=== PATIENT | male | born 1990 | race Caucasian/White ===

== ENCOUNTER 2022-03-04 20:58 | Emergency (ER) | payer OTHER, SELFPAY ==
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
--- NOTE | ~2022-03-04 | CT_ITS ---
EXAMINATION: CT cervical spine wo con DATE: 03/05/2022 03:12 INDICATION: Neck pain TECHNIQUE: Computed tomography (CT) of the cervical spine was performed without intravenous contrast. The dose-length product (DLP) was 516.56 mGy-cm. Automated exposure control and iterative reconstruc tion technique were employed. COMPARISON: None FINDINGS: There is no fracture, dislocation, or subluxation. The vertebral body heights, alignment, a nd intervertebral disc spaces are normal. The paravertebral soft tissues are unremarkable. A small le ft apical pneumothorax is noted. IMPRESSION: 1. No acute osseous abnormality. 2. Small left apical pneumothorax. Reviewed, dictated and finalized at location A.
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
[2022-03-04 21:00] VITALS: BP 153/94; PULSE 124; RESP 20; TEMP 36.6; O2SAT 98
[2022-03-05] VITALS (25 sets, daily range): BP systolic 127–157; BP diastolic 76–118; PULSE 91–139; RESP 11–25; TEMP 36.8; O2SAT 95–100
[2022-03-05] MEDS: ONDANSETRON INJ 4 MG/2 ML VIAL IV PUSH (02:10)
[2022-03-05] MEDS: MORPHINE SULFATE (*CRX) 4 MG/ML INJ IV PUSH (02:11)
[2022-03-05 02:22] LABS: Basophils Percent Auto 0.4 % (0.2-1.2); Hematocrit 46.4 % (42.0-52.0); Hemoglobin 15.8 g/dL (14.0-18.0); Immature Granulocyte Absolute 0.03 K/mm3 (0.00-0.031); Immature Granulocyte Percent A 0.3 % (0-0.5); Lymphocytes Absolute Auto 2.19 K/mm3 (0.9-3.2); Lymphocytes Percent Auto 23.7 % (18.3-44.2); Mean Corpuscular HGB Conc 34.1 g/dl (32-36); Mean Corpuscular Hemoglobin 31.7 pg (26-34); Monocytes Absolute Auto 0.7 K/mm3 (0.1-0.6); Monocytes Percent Auto 7.8 % (2.6-8.5); Neutrophils Absolute Auto 6.3 K/mm3 (1.3-6.7); Neutrophils Percent Auto 67.8 % (45.5-73.1); Platelet Count Result 320 k/mm3 (150-375); Red Blood Count 4.99 M/mm3 (4.6-6.20); Red Cell Distribution Width 11.9 % (11.5-14.5); White Blood Count 9.2 K/mm3 (4.5-10.0)
[2022-03-05 02:22] LABS: Alanine Aminotransferase 24 U/L (6-50); Albumin Level 5.4 g/dL (3.5-5.1); Alkaline Phosphatase 101 U/L (38-126); Anion Gap 14 mmol/L (8-16); Aspartate Amino Transferase 54 U/L (17-59); Bilirubin,Total 0.3 mg/dL (0.2-1.3); Blood Urea Nitrogen 7 mg/dL (9-20); Calcium 8.8 mg/dL (8.4-10.2); Carbon Dioxide 29 mmol/L (22-30); Chloride 99 mmol/L (98-107); Estimated CRCL calculation 90 ml/min; Estimated Glomerular Filt Rate > 60; Glucose 118 mg/dL (65-110); Potassium 4.5 mmol/L (3.4-5.0); Sodium 142 mmol/L (137-145)
--- NOTE | 2022-03-05 02:38 | PC.NURSE ---
Pt became diaphoretic and Bp dropped to 53/34 per auto cuff, NS started on pressure bag. Provider at bedside 2min after s/s started.
[2022-03-05] MEDS: SODIUM CHLORIDE 0.9% IV 1,000 ML 999 ML (02:41)
[2022-03-05 03:20] LABS: Appearance Urine Clear (Clear); Bilirubin Urine Negative (Negative); Blood Urine Trace-lysed (Negative); Color Urine Yellow (Yellow); Glucose Urine UA Negative (Negative); Ketones Urine Negative (Negative); Leukocyte Esterase Ur 1+ LEU/UL (Negative); Nitrate Urine Negative (Negative); Protein Urine 1+ mg/dL (Negative); Specific Grav Ur 1.015 (1.001-1.035); Urobilinogen Urine 0.2 mg/dL (<2.0)
[2022-03-05 03:23] LABS: Mucus Urine Rare /lpf; Squamous Epithelial Cell Urine Rare /hpf (Few); WBC Urine 51-75 /hpf
[2022-03-05 03:24] LABS: Add Urine Microscopic? YES
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
[2022-03-05 06:50] LABS: Ethanol 226 mg/dL (<10)
== END 2022-03-05 06:56 | disposition short-term general hospital (02) ==
PROVIDERS: Emergency Provider Emergency Medicine
DX: S27.0XXA Traumatic pneumothorax, initial encounter (principal); S22.32XA Fracture of one rib, left side, initial encounter for closed fracture; S27.321A Contusion of lung, unilateral, initial encounter; Y93.55 Activity, bike riding; V19.9XXA Pedal cyclist (driver) (passenger) injured in unspecified traffic accident, initial encounter
CPT/HCPCS: 36415; 70450; 71046; 71260; 72125; 74177; 80053; 80307; 81001; 85025; 87086; 96374; 96375; 99291; J2270; J2405; J7030; Q9967

== ENCOUNTER 2022-11-13 22:33 | Emergency (ER) | payer OTHER, SELFPAY ==
--- NOTE | ~2022-11-13 | US_ITS ---
EXAMINATION: US scrotum doppler DATE: 11/13/2022 23:57 INDICATION: Right testicular pain. TECHNIQUE: Grayscale and Doppler ultrasound images of the testes were obtained. COMPARISON: None. FINDINGS: The right testis measures 3.1 x 4.6 x 2.3 cm. The left testis measures 2.7 x 5.0 x 1.9 cm. There is normal vascular flow to both testes. The right epididymis is normal with normal vascular lizette w. The left epididymis is normal with normal vascular flow. There is no varicocele or hydrocele. IMPRESSION: 1. Normal testes. Reviewed, dictated and finalized at location A. IMPRESSION: 1. Normal testes.
[2022-11-13 22:33] VITALS: PULSE 92; RESP 15; TEMP 37.1; O2SAT 97
[2022-11-13 22:45] VITALS: BP 151/99; PULSE 78; RESP 15; O2SAT 100
--- NOTE | 2022-11-13 23:25 | ED.GENADULT ---
HPI - General Adult General Chief complaint: Urogenital-Male Stated complaint: TESTICULAR PAIN R/O TORSION Time Seen by Provider: 11/13/22 22:39 History of Present Illness HPI narrative: Patient 32-year-old gentleman who presents the emergency department with chief complaint of a right scrotum pain patient reports that he was seen at [facility] and was having pain in the right scrotum area the patient was seen by urology and they felt his most likely symptoms were consistent with epididymitis but wanted to get an ultrasound to make sure that there was no evidence of torsion. Unfortunately ultrasound was not available at the other facility and they requested to transported the patient to our facility where we have ultrasound available. Related Data Allergies Allergy/AdvReac Type Severity Reaction Status Date / Time No Known Allergies Allergy Verified 11/13/22 22:44 Review of Systems Review of Systems: A 10 system review of systems was completed on the patient and is negative except for what is stated in the HPI. Nursing and ancillary documentation was reviewed. Exam Narrative: GENERAL: Well-appearing, well-nourished, and in no acute distress. HEAD: Normocephalic, atraumatic. EYES: PERRLA and EOMI. ENT: Nares clear, no rhinorrhea or epistaxis. Mucous membranes moist. NECK: Supple. CHEST: Clear to auscultation. No respiratory distress. HEART: Regular rate and rhythm. No murmur heard. Normal peripheral pulses. ABDOMEN: Soft, nontender, nondistended, normal active bowel sounds. : Tenderness to palpation in the right testicle region. No fluctuance no crepitance EXTREMITIES: Normal range of motion. No edema. SKIN: Warm, dry, no rash. NEURO: No focal deficits. Alert and oriented x3. PSYCH: Normal mood and affect. Course Vital Signs Vital signs: Vital Signs Temperature 37.1 C 11/13/22 22:33 Pulse Rate 92 11/13/22 22:33 Respiratory Rate 15 11/13/22 22:33 Pulse Oximetry 97 11/13/22 22:33 Oxygen Delivery Room Air 11/13/22 22:33 Temperature 37.1 C 11/13/22 22:33 Pulse Rate 52 L 11/14/22 00:42 Respiratory Rate 16 11/14/22 00:42 Blood Pressure 135/76 11/14/22 00:42 Pulse Oximetry 97 11/14/22 00:42 Oxygen Delivery Room Air 11/13/22 22:33 Medical Decision Making MDM Narrative Medical decision making narrative: ddx epididymis torsion hydrocele scrotal pain ultrasound showed no evidence of torsion or acute epididymitis with give the patient 500mg IM rocephin and start on doxycycline and refer to urology. Vital Signs Vital Signs: Vital Signs Temperature 37.1 C 11/13/22 22:33 Pulse Rate 92 11/13/22 22:33 Respiratory Rate 15 11/13/22 22:33 Pulse Oximetry 97 11/13/22 22:33 Oxygen Delivery Room Air 11/13/22 22:33 Temperature 37.1 C 11/13/22 22:33 Pulse Rate 52 L 11/14/22 00:42 Respiratory Rate 16 11/14/22 00:42 Blood Pressure 135/76 11/14/22 00:42 Pulse Oximetry 97 11/14/22 00:42 Oxygen Delivery Room Air 11/13/22 22:33 Discharge Plan Discharge Clinical Impression: Pain in right testicle Patient Disposition: Home, Self-Care Condition: Stable Instructions: Antibiotic Form, Epididymitis (ED), Testicle Pain (ED), Scrotal Pain (ED) Prescriptions: New doxycycline hyclate 100 mg tablet 100 mg PO BID Qty: 14 0RF ibuprofen 800 mg tablet 800 mg PO TID PRN (Reason: pain) Qty: 30 0RF Follow-up/Referrals: PHYSICIAN,PERSONAL CARE AID [Primary Care Provider] - Baldev Ayon MD [Physician] - Time of Disposition: 01:00
[2022-11-14 00:42] VITALS: BP 135/76; PULSE 52; RESP 16; O2SAT 97
[2022-11-14 01:09] VITALS: BP 126/77; PULSE 84; RESP 17; O2SAT 99
[2022-11-14] MEDS: DOXYCYCLINE HYCLATE 100 MG TABLET PO (01:09)
[2022-11-14] MEDS: cefTRIAXone 1 GM VIAL 0.5 GM IM (01:09)
[2022-11-14 01:16] VITALS: BP 126/77; PULSE 75; RESP 18; O2SAT 98
== END 2022-11-14 01:16 | disposition home or self-care (01) ==
PROVIDERS: Emergency Provider Emergency Medicine
DX: N50.811 Right testicular pain (principal)
CPT/HCPCS: 76870; 93976; 96372; 99284; A9270; J0696